=== PATIENT | male | born 1965 | race African-American/Black ===

== ENCOUNTER 2018-12-13 08:05 | Emergency (ER) | payer OTHER ==
[~2018-12-13] VITALS: Ht 182.9 cm; Wt 97.1 kg
--- NOTE | 2018-12-13 08:05 | NUR ---
PT BIBRA FROM THE [facility]RE[facility] FOR AGGRESSIVE BEHAVIOR, GIVEN VERSED 5MG IM BAR HOSTESS; PT VERBALLY RESPONSIVE, PT TO BED 6, -SOB, NAD NOTED, AT BS AT [facility], PT ON MONITOR. PT IN GOWN, ALL BELONGING KEPT IN UTILITY ROOM.
[2018-12-13 08:29] LABS: BASOPHILS % (AUTO) 0.4 % (0.0-2.0); EOSINOPHILS % (AUTO) 0.1 % (0.0-6.0); HEMATOCRIT 36 % (39-51); HEMOGLOBIN 12.2 g/dL (13.5-17.5); LYMPHOCYTES # (AUTO) 0.4 /CMM (0.8-4.8); LYMPHOCYTES % (AUTO) 9.8 % (20.0-44.0); MEAN CORPUSCULAR HGB CONC 34 g/dl (31.0-36.0); MEAN CORPUSCULAR VOLUME 99 fL (80-96); MONOCYTES # (AUTO) 0.4 /CMM (0.1-1.30); MONOCYTES % (AUTO) 10.3 % (2.0-12.0); NEUTROPHILS # (AUTO) 3.4 /CMM (1.8-8.9); NEUTROPHILS % (AUTO) 79.4 % (43.0-81.0); PLATELET COUNT (AUTO) 131 /CMM (150-450); RED BLOOD CELL COUNT(AUTO) 3.64 MIL/uL (4.5-6.0); WHITE BLOOD COUNT (AUTO) 4.3 K/uL (4.3-11.0)
[2018-12-13] MEDS ORDERED: IV NS 0.9% 1,000 ML BAG IV ONE (08:30)
[2018-12-13 08:39] LABS: CALCIUM, SERUM 8.8 mg/dL (8.5-10.1); CARBON DIOXIDE 26 mmol/L (21-32); CHLORIDE 102 mmol/L (98-107); CREATININE 1.5 mg/dL (0.6-1.3); GLUCOSE 113 mg/dL (74-106); POTASSIUM 3.4 mmol/L (3.5-5.1); SODIUM SERUM 138 mmol/L (136-145); UREA NITROGEN, BLOOD 32 mg/dL (7-18)
--- NOTE | 2018-12-13 08:42 | NUR ---
CONDOM CATH PLACED PER DR. ORTA'S ORDER FOR URINE COLLECTION.
[2018-12-13 08:45] LABS: ACETAMINOPHEN 1 ug/ml (10-30); ALANINE AMINOTRANSFERASE 228 U/L (12-78); ALBUMIN 3.4 g/dL (3.4-5.0); ALKALINE PHOSPHATASE 89 U/L (46-116); ASPARTATE AMINOTRANSFERASE 220 U/L (15-37); BILIRUBIN,DIRECT 0.7 mg/dL (0.0-0.2); BILIRUBIN,TOTAL 1.3 mg/dL (0.2-1.0); TOTAL PROTEIN, SERUM 7.4 g/dL (6.4-8.2)
[2018-12-13 08:46] LABS: ALCOHOL, BLOOD < 3 mg/dL (0-0); SALICYLATE 1.8 mg/dL (2.8-20.0)
--- NOTE | 2018-12-13 11:21 | NUR ---
REC'D REPORT FROM JESUS TRAN. CHECKED ON PT, RESPONDS TO VERBAL STIMULI, NO COMPLAINTS AT THIS TIME. NO URINE IN CONDOM CATH. WILL CONT TO MONITOR.
--- NOTE | 2018-12-13 11:30 | NUR ---
[employer] AT BEDSIDE
[2018-12-13] MEDS ORDERED: OLANZAPINE 10 MG VIAL IM ONE ×3 (11:46→12:30)
--- NOTE | 2018-12-13 11:48 | NUR ---
CALLED STEEL HEATER MVA OPERATOR. LEFT MESSAGE
--- NOTE | 2018-12-13 11:52 | NUR ---
REFUSED [facility], DR ORTA INFORMED
--- NOTE | 2018-12-13 12:11 | NUR ---
[employer] STILL OPERATOR AT BEDSIDE
--- NOTE | 2018-12-13 12:15 | NUR ---
PT TOO COMBATIVE FOR ULTRASOUND AT THIS TIME. NOTIFIED
--- NOTE | 2018-12-13 12:46 | NUR ---
CALLED PROPOSAL MANAGER CLINICIAN. SHE WILL ARRIVE IN 60MIN
--- NOTE | 2018-12-13 14:00 | NUR ---
[employer]AM[employer] CUTTER MACHINE TABATHA AT BEDSIDE FOR EVAL.
--- NOTE | 2018-12-13 14:20 | NUR ---
PER DR ORTA, IF PT CAN EAT AND WALK, HE MAY BE DISCHARGED Addendum: 12/13/18 at 1540 by TYSONUWONO MAY BE DISCHARGED WITHOUT ULTRASOUND
--- NOTE | 2018-12-13 14:24 | NUR ---
CALLED DIETARY FOR FOOD TRAY
--- NOTE | 2018-12-13 15:55 | NUR ---
IV removed. Catheter intact and site benign. Pressure and 4x4 applied to site. No bleeding noted.Patient discharged to home in stable condition. Written and verbal after care instructions given. Patient verbalizes understanding of instruction.
[2018-12-13 17:04] VITALS: BP 111/70
== END 2018-12-13 17:05 | disposition home or self-care (01) ==
LOC: ER 08:05
DX: F23 Brief psychotic disorder (principal); R74.0 Nonspecific elevation of levels of transaminase and lactic acid dehydrogenase [LDH]; R45.1 Restlessness and agitation
CPT/HCPCS: 36415; 80048; 80076; 80307; 80329; 85025; 93005; 96372; 99284; J3490; J7030; G0480